=== PATIENT | female | born 1945 | race Caucasian/White ===

== ENCOUNTER 2024-07-25 14:39 | Inpatient (IN) | payer MEDICARE, OTHER ==
[~2024-07-25] VITALS: Ht 157.5 cm; Wt 80.7 kg
[2024-07-25 15:17] VITALS: BP 121/63; TEMP 99.5
[2024-07-25 15:34] VITALS: BP 121/63; TEMP 99.5
[2024-07-25] MEDS ORDERED: REMEDY ESSENTIAL ZINC PASTE 113 GM TOP PRN (20:30)
[2024-07-25 22:30] VITALS: BP 118/52; TEMP 96.8; O2SAT 96
[2024-07-26] MEDS ORDERED: PANT40TA2 PO (00:09)
[2024-07-26] MEDS ORDERED: ACET325C7 PO (00:09)
[2024-07-26] MEDS ORDERED: ERGO500040 PO (00:09)
[2024-07-26] MEDS ORDERED: ENAL5TAB21 PO (00:09)
[2024-07-26] MEDS ORDERED: MAG355OR18 PO (00:09)
[2024-07-26] MEDS ORDERED: MAG-89 PO (00:09)
[2024-07-26] MEDS ORDERED: MAG HYDROX/AL HYDROX/SIMETH 30 ML LIQUID UDC PO PRN ×3 (02:00→13:08)
[2024-07-26] MEDS: ERGOCALCIFEROL 50,000 UNIT CAPSULE PO SCH (02:00)
[2024-07-26 05:00] VITALS: BP 129/59; TEMP 97.7; O2SAT 96
[2024-07-26] MEDS: PANTOPRAZOLE SODIUM 40 MG TABLET.DR PO SCH (06:21)
[2024-07-26] MEDS: PANTOPRAZOLE SODIUM 40 MG TABLET.DR PO ONE (06:25)
[2024-07-26 08:00] VITALS: BP 124/57; TEMP 97.7; O2SAT 97
[2024-07-26] MEDS: ENALAPRIL 5 MG TABLET PO SCH ×2 (08:53→20:43)
[2024-07-26] MEDS ORDERED: LISI10TA29 PO (10:48)
[2024-07-26] MEDS ORDERED: MAGN400O6 PO (10:50)
[2024-07-26] MEDS ORDERED: CYAN100096 PO (10:51)
[2024-07-26] MEDS: ACETAMINOPHEN 325 MG TABLET PO PRN (12:19)
[2024-07-26] MEDS ORDERED: MAGNESIUM HYDROXIDE 30 ML LIQUID UDC PO PRN (13:15)
[2024-07-26] MEDS ORDERED: ENALAPRIL 5 MG TABLET PO SCH (13:18)
[2024-07-26 15:55] VITALS: BP 128/72; TEMP 98.4; O2SAT 97
[2024-07-26 21:13] VITALS: BP 100/51; TEMP 97.1; O2SAT 97
[2024-07-27 03:57] VITALS: O2SAT 98
[2024-07-27 07:26] VITALS: BP 130/58; TEMP 98.8; O2SAT 95
[2024-07-27 07:46] VITALS: BP 138/60; TEMP 97.8; O2SAT 99
[2024-07-27] MEDS: CYANOCOBALAMIN 1,000 MCG TABLET PO SCH (09:13)
[2024-07-27 16:00] VITALS: BP 138/76; TEMP 97.2; O2SAT 97
[2024-07-27 16:20] VITALS: O2SAT 97
[2024-07-27 20:15] VITALS: BP 139/62; TEMP 98.4; O2SAT 96
[2024-07-28] VITALS (7 sets, daily range): BP systolic 100–140; BP diastolic 49–68; TEMP 97.9–98.7; O2SAT 96–99
[2024-07-28] MEDS: ARGININE/GLUTAMINE/CALCIUM BMB 1 EACH POWD.PACK PO SCH (08:21)
[2024-07-28] MEDS ORDERED: DEXTROSE 50% 50 ML DISP.SYRIN IV PRN (15:30)
[2024-07-28] MEDS: BLOOD SUGAR DIAGNOSTIC 1 EACH STRIP VI SCH (16:18)
[2024-07-28] MEDS: INSULIN REGULAR, HUMAN 1000 UNIT/10 ML VIAL SQ PRN (20:23)
[2024-07-29 05:00] VITALS: BP 137/68; TEMP 97.9; O2SAT 98
[2024-07-29 08:03] VITALS: BP 126/62; TEMP 97.4; O2SAT 100
[2024-07-29 10:52] LABS: PLATELET COUNT (AUTO) 314 K/uL (179-408); RED BLOOD CELL COUNT(AUTO) 3.46 MIL/uL (3.63-4.92); RED CELL DISTRIBUTION WIDTH 14.3 % (12.3-17.7); WHITE BLOOD COUNT (AUTO) 8.4 K/uL (3.8-11.8)
[2024-07-29 11:05] LABS: CREATININE 0.7 mg/dL (0.6-1.3); SODIUM SERUM 136 mmol/L (136-145); UREA NITROGEN, BLOOD 13 mg/dL (7-18)
[2024-07-29 11:11] LABS: ASPARTATE AMINOTRANSFERASE 33 U/L (15-37); TOTAL PROTEIN, SERUM 6.6 g/dL (6.4-8.2)
[2024-07-29 14:16] VITALS: O2SAT 96
[2024-07-29 15:48] VITALS: BP 122/69; TEMP 98.1; O2SAT 96
[2024-07-29 19:34] VITALS: BP 122/65; TEMP 98.3; O2SAT 97
[2024-07-29 21:10] VITALS: O2SAT 97
[2024-07-30 05:20] VITALS: BP 138/60; TEMP 98.1; O2SAT 98
[2024-07-30 07:47] VITALS: BP 128/59; TEMP 97.4; O2SAT 97
[2024-07-30 15:59] VITALS: BP 109/72; TEMP 97.7; O2SAT 98
[2024-07-30 20:16] VITALS: BP 142/67; TEMP 98.6; O2SAT 98
[2024-07-31 06:30] VITALS: BP 140/68; TEMP 98.3; O2SAT 94
[2024-07-31 08:00] VITALS: BP 151/69; TEMP 98.7; O2SAT 97
[2024-07-31 17:01] VITALS: BP 98/62; TEMP 98.5; O2SAT 97
[2024-07-31 19:49] VITALS: BP 143/70; TEMP 98.1; O2SAT 98
[2024-08-01 05:42] VITALS: BP 145/75; TEMP 98; O2SAT 95
[2024-08-01 08:51] VITALS: BP 122/62; TEMP 98; O2SAT 96
[2024-08-01 17:32] VITALS: BP 157/58; TEMP 99; O2SAT 96
[2024-08-01 20:30] VITALS: BP 131/64; TEMP 98; O2SAT 96
[2024-08-02 05:23] VITALS: BP 134/54; TEMP 98.6; O2SAT 96
[2024-08-02 08:16] VITALS: BP 149/60; TEMP 97.6; O2SAT 98
[2024-08-02 16:02] VITALS: BP 121/67; TEMP 97.6; O2SAT 96
[2024-08-02 19:46] VITALS: BP 138/58; TEMP 98; O2SAT 97
[2024-08-03 05:56] LABS: PLATELET COUNT (AUTO) 366 K/uL (179-408); RED BLOOD CELL COUNT(AUTO) 3.72 MIL/uL (3.63-4.92); RED CELL DISTRIBUTION WIDTH 14.6 % (12.3-17.7); WHITE BLOOD COUNT (AUTO) 14.6 K/uL (3.8-11.8)
[2024-08-03 06:18] LABS: IRON, SERUM 24 ug/dL (50-175)
[2024-08-03 06:36] LABS: ASPARTATE AMINOTRANSFERASE 15 U/L (15-37); CREATININE 0.7 mg/dL (0.6-1.3); SODIUM SERUM 138 mmol/L (136-145); TOTAL PROTEIN, SERUM 6.9 g/dL (6.4-8.2); UREA NITROGEN, BLOOD 22 mg/dL (7-18)
[2024-08-03 06:59] VITALS: BP 141/70; TEMP 97.9; O2SAT 96
[2024-08-03 08:00] VITALS: BP 135/78; TEMP 97.7; O2SAT 97
[2024-08-03 09:15] LABS: *BILIRUBIN,URIN NEGATIVE (NEGATIVE); *BLOOD, URINE 1+ (NEGATIVE); *CLARITY,URINE CLOUDY (CLEAR); *KETONES,URINE NEGATIVE (NEGATIVE); *PROTEIN,URINE TRACE (NEGATIVE); *UROBILINOGEN,URINE 0.2 E.U./dl (NORMAL); LEUKOCYTE ESTERASE ,URINE 2+ (NEGATIVE); NITRITE, URINE POSITIVE (NEGATIVE); UGLUCOSE NEGATIVE (NEGATIVE)
[2024-08-03 09:32] LABS: *COLOR,URINE YELLOW (YELLOW)
[2024-08-03 09:33] LABS: SQUAMOUS EPITHELIAL CELL,UR MODERATE /HPF (NONE SEEN)
[2024-08-03 16:03] VITALS: BP 132/69; TEMP 97.7; O2SAT 97
[2024-08-03 19:34] VITALS: BP 101/57; TEMP 97.9; O2SAT 96
[2024-08-03] MEDS: ATORVASTATIN 10 MG TABLET PO SCH (21:20)
[2024-08-04 06:46] VITALS: BP 135/72; TEMP 97.4; O2SAT 95
[2024-08-04 07:46] VITALS: BP 155/59; TEMP 98.4; O2SAT 97
[2024-08-04] MEDS: FERROUS GLUCONATE 324 MG TABLET PO SCH (08:31)
[2024-08-04] MEDS: PROTEIN SUPPLEMENT (PROSTAT) 30 ML LIQUID PO SCH (08:31)
[2024-08-04 16:04] VITALS: BP 124/58; TEMP 97; O2SAT 95
[2024-08-04 20:00] VITALS: BP 148/57; TEMP 98.3; O2SAT 98
[2024-08-05 06:18] VITALS: BP 132/78; TEMP 98; O2SAT 99
[2024-08-05 08:00] VITALS: BP 146/79; TEMP 97.2; O2SAT 96
[2024-08-05 16:00] VITALS: BP 121/58; TEMP 97.4; O2SAT 98
[2024-08-05 19:49] VITALS: BP 150/66; TEMP 96.5; O2SAT 95
[2024-08-06 05:20] VITALS: BP 142/80; TEMP 96.8; O2SAT 96
[2024-08-06 20:00] VITALS: BP 127/66; TEMP 98.4; O2SAT 97
[2024-08-07 05:00] VITALS: BP 118/70; TEMP 96.1; O2SAT 96
[2024-08-07 08:00] VITALS: BP 140/76; TEMP 97.4; O2SAT 96
[2024-08-07] MEDS: MODAFINIL 100 MG TABLET PO SCH (13:15)
[2024-08-07 16:00] VITALS: BP 126/73; TEMP 98.4; O2SAT 95
[2024-08-07] MEDS: RIVAROXABAN 10 MG TABLET PO SCH (17:55)
[2024-08-07 20:56] VITALS: BP 137/76; TEMP 98; O2SAT 91
[2024-08-08 06:58] VITALS: BP 140/76; TEMP 98; O2SAT 90
[2024-08-08 08:00] VITALS: BP 144/76; TEMP 98.2; O2SAT 95
[2024-08-08 18:58] VITALS: BP 123/58; TEMP 98; O2SAT 97
[2024-08-08 20:53] VITALS: BP 135/67; TEMP 98.1; O2SAT 97
[2024-08-09 05:05] VITALS: BP 150/84; TEMP 97.8; O2SAT 96
[2024-08-09 06:27] LABS: PLATELET COUNT (AUTO) 307 K/uL (179-408); RED BLOOD CELL COUNT(AUTO) 4.13 MIL/uL (3.63-4.92); RED CELL DISTRIBUTION WIDTH 15.1 % (12.3-17.7); WHITE BLOOD COUNT (AUTO) 9.1 K/uL (3.8-11.8)
[2024-08-09 07:28] LABS: CREATININE 0.8 mg/dL (0.6-1.3); SODIUM SERUM 142 mmol/L (136-145); UREA NITROGEN, BLOOD 21 mg/dL (7-18)
[2024-08-09 07:29] LABS: ASPARTATE AMINOTRANSFERASE 11 U/L (15-37); TOTAL PROTEIN, SERUM 7.5 g/dL (6.4-8.2)
[2024-08-09 08:00] VITALS: BP 147/72; TEMP 98.3; O2SAT 95
[2024-08-09 18:09] VITALS: BP 133/66; TEMP 98; O2SAT 96
[2024-08-10 06:06] VITALS: BP 140/83; TEMP 98.4; O2SAT 95
[2024-08-10 19:26] VITALS: BP 150/83; TEMP 97.7; O2SAT 93
[2024-08-11 05:15] VITALS: BP 140/71; TEMP 98.1; O2SAT 97
[2024-08-11 10:34] VITALS: BP 136/83; TEMP 98.1; O2SAT 98
== END 2024-08-11 14:20 | disposition home health service (06) | DRG 559 ==
PROVIDERS: ADMIT Physical Medicine & Rehabilitation Pain Medicine; ATTEND Physical Medicine & Rehabilitation Pain Medicine
DX: S72.141D Displaced intertrochanteric fracture of right femur, subsequent encounter for closed fracture with routine healing (principal); G93.41 Metabolic encephalopathy; D68.59 Other primary thrombophilia; N39.0 Urinary tract infection, site not specified; E44.0 Moderate protein-calorie malnutrition; W01.0XXD Fall on same level from slipping, tripping and stumbling without subsequent striking against object, subsequent encounter; I10 Essential (primary) hypertension; E78.5 Hyperlipidemia, unspecified; F03.90 Unspecified dementia, unspecified severity, without behavioral disturbance, psychotic disturbance, mood disturbance, and anxiety; B96.4 Proteus (mirabilis) (morganii) as the cause of diseases classified elsewhere; D50.9 Iron deficiency anemia, unspecified; E66.9 Obesity, unspecified; E88.09 Other disorders of plasma-protein metabolism, not elsewhere classified; K76.0 Fatty (change of) liver, not elsewhere classified; M17.11 Unilateral primary osteoarthritis, right knee; M81.0 Age-related osteoporosis without current pathological fracture; Z68.32 Body mass index [BMI] 32.0-32.9, adult; Z86.16 Personal history of COVID-19
CPT/HCPCS: 36415; 73502; 83550; 83735; 84100; 84443; 85025; 87077; 87086; 94760; J1815